=== PATIENT | female | born 1950 | race Caucasian/White ===

== ENCOUNTER → 2020-03-30 | Outpatient (CLI) | payer OTHER, MEDICARE ==
[~2020-03-30] MED LIST: AMITRIPTYLINE H10 M1 PO; CALCIUM OYSTER500 MG PO; CYCLOBENZAPRINE10 MG PO; DIAZEPAM 5 MG5 M1 PO; FOLIC ACID1 MG PO; HYDROCODON-ACE1 EAC7 PO; LISINOPRIL40 MG PO; MAXAIR AUTOHALE14 G1 IH; OMEGA-31000 MG PO; PROTONIX40 M2 PO; RESTASIS1 EACH OP; SYNTHROID88 MCG PO; TOPROL XL25 MG PO; TREXALL15 MG PO; VITAMIN D400 UNI1 PO; [UNRECOGNIZED DRUG - OTHER]
== END ==
LOC: SJCVCIMAG 08:40
PROVIDERS: ATTEND Podiatrist Foot & Ankle Surgery
DX: I73.9 Peripheral vascular disease, unspecified (principal); M79.89 Other specified soft tissue disorders; M71.22 Synovial cyst of popliteal space [Baker], left knee; M79.604 Pain in right leg; Z79.899 Other long term (current) drug therapy